=== PATIENT | male | born 1965 | race Caucasian/White ===

== ENCOUNTER 2017-09-08 08:21 | Outpatient (CLI) | payer OTHER | END 2017-09-08 08:35 | disposition home or self-care (01) | LOC: RAD 08:21 | DX: M54.5 Low back pain (principal) ==

== ENCOUNTER → 2020-08-02 07:47 | Outpatient (CLI) | payer OTHER ==
[~2020-08-02 07:47] MED LIST: METHOCARBAMOL500 MG PO; NABUMETONE500 MG PO
== END | disposition home or self-care (01) ==
LOC: LAB 07:47
PROVIDERS: ATTEND General Practice
DX: Z00.01 Encounter for general adult medical examination with abnormal findings (principal); Z11.3 Encounter for screening for infections with a predominantly sexual mode of transmission; Z12.11 Encounter for screening for malignant neoplasm of colon; Z68.31 Body mass index [BMI] 31.0-31.9, adult; M54.2 Cervicalgia; M54.42 Lumbago with sciatica, left side; R42 Dizziness and giddiness; R51.9 Headache, unspecified; Z12.5 Encounter for screening for malignant neoplasm of prostate; Z11.4 Encounter for screening for human immunodeficiency virus [HIV]; Z13.0 Encounter for screening for diseases of the blood and blood-forming organs and certain disorders involving the immune mechanism; Z13.1 Encounter for screening for diabetes mellitus; Z13.220 Encounter for screening for lipoid disorders; Z13.228 Encounter for screening for other metabolic disorders; L20.89 Other atopic dermatitis

== ENCOUNTER 2020-08-03 11:07 | Outpatient (CLI) | payer OTHER ==
[2020-08-12] MEDS ORDERED: NABUMETONE500 MG PO (10:34)
[2020-08-12] MEDS ORDERED: METHOCARBAMOL500 MG PO (10:34)
== END 2020-08-03 11:18 | disposition home or self-care (01) ==
LOC: LAB 11:07
PROVIDERS: ATTEND General Practice
DX: Z00.01 Encounter for general adult medical examination with abnormal findings (principal); Z11.3 Encounter for screening for infections with a predominantly sexual mode of transmission; Z12.11 Encounter for screening for malignant neoplasm of colon; Z68.31 Body mass index [BMI] 31.0-31.9, adult; M54.2 Cervicalgia; M54.42 Lumbago with sciatica, left side; R42 Dizziness and giddiness; R51.9 Headache, unspecified; Z12.5 Encounter for screening for malignant neoplasm of prostate; Z11.4 Encounter for screening for human immunodeficiency virus [HIV]; Z13.0 Encounter for screening for diseases of the blood and blood-forming organs and certain disorders involving the immune mechanism; Z13.1 Encounter for screening for diabetes mellitus; Z13.220 Encounter for screening for lipoid disorders; Z13.228 Encounter for screening for other metabolic disorders; L20.89 Other atopic dermatitis

== ENCOUNTER 2020-08-26 14:39 | Outpatient (CLI) | payer OTHER | END 2020-08-26 15:32 | disposition home or self-care (01) | LOC: RAD 14:39 | PROVIDERS: ATTEND Orthopaedic Surgery | DX: M25.551 Pain in right hip (principal); M25.552 Pain in left hip ==

== ENCOUNTER → 2020-08-27 10:10 | Outpatient (CLI) | payer OTHER | END | disposition home or self-care (01) | LOC: LAB 10:10 | PROVIDERS: ATTEND Urology | DX: N40.0 Benign prostatic hyperplasia without lower urinary tract symptoms (principal) ==

== ENCOUNTER 2020-10-23 07:37 | Outpatient (CLI) | payer OTHER | END 2020-10-23 07:52 | disposition home or self-care (01) | LOC: TOM 07:37 | PROVIDERS: ATTEND Internal Medicine Gastroenterology | DX: N20.0 Calculus of kidney (principal); K57.90 Diverticulosis of intestine, part unspecified, without perforation or abscess without bleeding ==

== ENCOUNTER 2021-03-01 08:43 | Outpatient (CLI) | payer OTHER | END 2021-03-01 08:55 | disposition home or self-care (01) | LOC: RAD 08:43 | PROVIDERS: ATTEND Orthopaedic Surgery Sports Medicine | DX: M16.12 Unilateral primary osteoarthritis, left hip (principal) ==

== ENCOUNTER 2021-06-05 06:34 | Emergency (ER) | payer OTHER ==
[~2021-06-05] VITALS: Ht 172.7 cm; Wt 90.7 kg
[~2021-06-05 06:34] MED LIST changes: +CYCLOBENZAPRINE10 MG PO; +ETODOLAC300 MG PO
[2021-06-05] MEDS ORDERED: BENADRYL25 MG PO (08:16)
[2021-06-05] MEDS ORDERED: MEDROL4 MG PO (08:16)
== END 2021-06-05 09:37 ==
LOC: ER 06:34
DX: L50.9 Urticaria, unspecified (principal)

== ENCOUNTER 2021-08-20 07:05 | Outpatient (CLI) | payer OTHER ==
[~2021-08-20 07:05] MED LIST changes: +BENADRYL25 MG PO; +MEDROL4 MG PO
== END 2021-08-20 07:30 | disposition home or self-care (01) ==
LOC: LAB 07:05
PROVIDERS: ATTEND General Practice
DX: G44.89 Other headache syndrome (principal); R42 Dizziness and giddiness; Z12.5 Encounter for screening for malignant neoplasm of prostate; Z13.89 Encounter for screening for other disorder; Z13.220 Encounter for screening for lipoid disorders; I10 Essential (primary) hypertension; E66.9 Obesity, unspecified; Z13.1 Encounter for screening for diabetes mellitus; R13.10 Dysphagia, unspecified

== ENCOUNTER 2021-11-28 10:20 | Outpatient (CLI) | payer OTHER | END 2021-11-28 10:30 | disposition home or self-care (01) | LOC: SONOGRAMA 10:20 | DX: N18.2 Chronic kidney disease, stage 2 (mild) (principal); Z12.9 Encounter for screening for malignant neoplasm, site unspecified ==

== ENCOUNTER 2021-12-01 06:55 | Outpatient (CLI) | payer OTHER | END 2021-12-01 07:06 | disposition home or self-care (01) | LOC: LAB 06:55 | PROVIDERS: ATTEND Specialist/Technologist, Other Nephrology | DX: Z12.9 Encounter for screening for malignant neoplasm, site unspecified (principal) ==

== ENCOUNTER → 2024-04-25 08:05 | Outpatient (CLI) | payer OTHER ==
[2024-04-25 10:32] LABS: ALBUMIN 4.2 gm/dL (3.4-5.0); CALCIUM 9.6 mg/dL (8.5-10.1); CREATININE SERUM 1.16 mg/dL (0.70-1.30); GFR 64.66; PHOSPHOROUS 2.6 mg/dL (2.5-4.9); POTASSIUM 5.46 mEq/L (3.5-5.1)
== END | disposition home or self-care (01) ==
LOC: LAB 08:05
DX: E11.51 Type 2 diabetes mellitus with diabetic peripheral angiopathy without gangrene (principal); I11.9 Hypertensive heart disease without heart failure

== ENCOUNTER 2024-04-25 09:36 | Outpatient (CLI) | payer OTHER | END 2024-04-25 09:38 | disposition home or self-care (01) | LOC: RAD 09:36 | DX: I11.9 Hypertensive heart disease without heart failure (principal); K21.9 Gastro-esophageal reflux disease without esophagitis ==